=== PATIENT | female | born 1970 | race Caucasian/White ===

== ENCOUNTER 2018-02-03 22:36 | Emergency (ER) | payer BC ==
[~2018-02-03] VITALS: Ht 165.1 cm; Wt 59.1 kg
[2018-02-03 22:46] VITALS: BP 138/84; TEMP 97.8
[2018-02-03] MEDS ORDERED: YUVAFEM10 MCG VG (23:14)
[2018-02-04] MEDS ORDERED: PREDNISONE20 MG PO (00:05)
[2018-02-04 00:20] VITALS: PULSE 54
== END 2018-02-04 00:20 | disposition home or self-care (01) ==
LOC: COL.ER 22:36
DX: T78.1XXA Other adverse food reactions, not elsewhere classified, initial encounter (principal); Z90.710 Acquired absence of both cervix and uterus
CPT/HCPCS: J1200; J2930

== ENCOUNTER → 2018-08-09 | Outpatient (CLI) | payer BC ==
[~2018-08-09] MED LIST: PREDNISONE20 MG PO; YUVAFEM10 MCG VG
== END ==
LOC: MC.RAD 15:15
DX: Z12.31 Encounter for screening mammogram for malignant neoplasm of breast (principal)

== ENCOUNTER → 2019-08-11 | Outpatient (CLI) | payer BC | LOC: MC.RAD 16:45 | DX: Z12.31 Encounter for screening mammogram for malignant neoplasm of breast (principal); N63.10 Unspecified lump in the right breast, unspecified quadrant ==

== ENCOUNTER → 2019-08-14 | Outpatient (CLI) | payer BC | LOC: MC.RAD 08:58 | DX: N60.01 Solitary cyst of right breast (principal) ==

== ENCOUNTER → 2022-01-24 | Outpatient (CLI) | payer BC | LOC: MC.RAD 15:26 | DX: Z12.31 Encounter for screening mammogram for malignant neoplasm of breast (principal) ==

== ENCOUNTER → 2023-04-20 | Outpatient (CLI) | payer BC ==
[~2023-04-20] MED LIST changes: +CEPHALEXIN500 M1 PO; +DUO-KAPS1 CAP PO; +ESTRACE 1MG1 MG/TAB PO; +MOBIC15 MG PO; +NORCO 325 MG-51 TAB PO
== END ==
LOC: CANSCHCLI → COL.RAD 11:39 → MC.RAD 11:39 → COL.RAD 11:45 → MC.RAD 11:45
DX: Z12.31 Encounter for screening mammogram for malignant neoplasm of breast (principal)